=== PATIENT | female | born 1995 | race Caucasian/White ===

== ENCOUNTER 2021-03-15 02:08 | Emergency (ER) | payer MEDICAID, SELFPAY ==
[2021-03-15 02:16] VITALS: BP 119/60; PULSE 78; RESP 20; TEMP 36.6; O2SAT 99; BMI 23.3
--- NOTE | 2021-03-15 02:21 | ECG_ITS ---
Test Reason : NAUSEA Blood Pressure : / mmHG Vent. Rate : 066 BPM Atrial Rate : 066 BPM P-R Int : 142 ms QRS Dur : 094 ms QT Int : 394 ms P-R-T Axes : 035 091 -25 degrees QTc Int : 413 ms Sinus rhythm with marked sinus arrhythmia Rightward axis Nonspecific ST abnormality Inferior leads T-wave inversion in Anterior leads Abnormal ECG No previous ECGs available Referred By: Em Sanz Electronically Signed By:MAMI WARD MD
--- NOTE | 2021-03-15 02:41 | ED_ITS ---
HPI - Nausea/Vomiting/Diarrhea General Chief complaint: Nausea/Vomiting/Diarrhea Stated complaint: non-stop vomiting, bulimic, dehydration Time Seen by Provider: 03/15/21 02:20 Source: patient Mode of arrival: ambulatory History of Present Illness HPI Narrative: 25-year-old female presents with history of sickle cool vomiting of bulimia and now presents with multiple episodes of nausea and vomiting that started today and patient states that she also smokes marijuana and the last time was today as well. She states he is having 10/10 burning abdominal/chest pain and states that she can not keep anything down. She states the nausea and vomiting started shortly after she attempted to drink hot chocolate approximately 5:00 p.m. last night. Otherwise, she denies any fever, chills, diarrhea. Related Data Previous Rx's Medication Instructions Recorded ondansetron HCl 4 mg tablet 4 mg PO Q6H PRN #10 tab 03/15/21 (Zofran) prochlorperazine 25 mg rectal 25 mg TX Q12H PRN #12 ea 03/15/21 suppository Allergies Allergy/AdvReac Type Severity Reaction Status Date / Time No Known Allergies Allergy Verified 03/15/21 03:08 Review of Systems Review of Systems: Pertinent positives and negatives as stated in HPI 10 point review systems is otherwise negative. [facility] Past Medical History Source: nursing notes reviewed Social History Social History Advance Directives: No Advance Directives Information Provided: Yes Patient : No Physical Exam Vital Signs: Vital Signs: Last Vital Signs Temp 98 F 03/15/21 02:16 Pulse 78 03/15/21 02:16 Resp 20 03/15/21 02:16 BP 119/60 03/15/21 02:16 Pulse Ox 99 03/15/21 02:16 Body Mass Index 23.3 VITAL SIGNS: Reviewed. GENERAL: Well developed, well nourished, in no acute distress. HEAD: Normocephalic/atraumatic EYES: PERRLA, EOMI OROPHARYNX: no oral lesions noted, posterior pharynx clear NECK: Supple, no adenopathy LUNGS: Normal breath sounds. No adventitious sounds or accessory muscle use. SpO2<99> CARDIOVASCULAR: Regular rate and rhythm without noted murmurs ABDOMEN: Soft, non-tender, non-distended with bowel sounds. SKIN: Inspection of the skin reveals no rashes NEUROLOGIC: Alert and oriented x 4. PSYCH: Patient actively placing 2 fingers down her throat to induce vomiting Course Course Course Narrative: 25-year-old female with history and clinical presentation consistent with bulimia, possibly exacerbated by patient's marijuana usage, but actively making herself vomit at this time. On review of all investigations patient has a leukocytosis that is consistent with her underlying multiple episodes retching, but otherwise no significant electrolyte abnormalities in new acute findings on EKG. After patient was fluid resuscitated and received combination antiemetics she is currently tolerating saltines as well ice chips and is discharged home in stable condition with instructions to resume her home medications and to follow-up her primary care provider. MDM - Nausea/Vomiting/Diarrhea Lab Data Result diagrams: 03/15/21 02:40 03/15/21 02:40 Labs: Lab Results 03/15/21 03/15/21 03/15/21 Range/Units 02:40 02:40 03:49 WBC 17.7 H (4.8-10.8) X10*3/uL RBC 4.47 (4.20-5.50) X10*6/uL Hgb 13.8 (12.0-16.0) g/dl Hct 39.6 (37.0-47.0) % MCV 88.6 (80.0-98.0) fL MCH 30.9 (27.0-33.0) pg MCHC 34.8 (31.0-35.0) g/dl RDW 13.3 (11.0-16.0) % Plt Count 315 (160-400) X10*3/uL MPV 9.8 (9.4-12.3) fL Immature Gran % (Auto) 0.4 (0.0-0.4) % Neut % (Auto) 91.8 H (45-73) % Lymph % (Auto) 4.7 L (20-40) % [place] % (Auto) 2.7 (2-11) % Eos % (Auto) 0.2 (0-4) % Baso % (Auto) 0.2 (0-2) % Lymph # (Auto) 0.8 L (1.2-4.9) X10*3/uL [place] # (Auto) 0.5 (0.1-1.2) X10*3/uL Eos # (Auto) 0.0 (0.0-0.4) X10*3/uL Baso # (Auto) 0.0 (0.0-0.2) X10*3/uL Abs Immat Gran (auto) 0.07 H (0.00-0.03) X10*3/uL Absolute Neuts (auto) 16.3 H (2.0-8.3) x10*3/uL Absolute Nucleated RBC 0.000 (0.0-0.012) X10*3/uL Nucleated RBC % (auto) 0.0 (0.0-0.2) /100WBC Sodium 143 (135-145) mmol/L Potassium 3.9 (3.3-5.1) mmol/L Chloride 108 (96-108) mmol/L Carbon Dioxide 21 L (22-29) mmol/L Anion Gap 18 (12-20) BUN 13 (9-16) mg/dL Creatinine 1.01 (0.5-1.4) mg/dL Estim Creat Clear Calc 77.9 Estimated GFR > 60 Random Glucose 154 H (60-115) mg/dL Calcium 10.7 H (8.4-10.2) mg/dL Total Bilirubin 0.6 (0.0-1.0) mg/dL AST 20 (5-31) U/L ALT 11 (0-31) U/L Alkaline Phosphatase 78 (39-117) U/L Total Protein 8.5 H (6.5-8.0) g/dL Albumin 4.9 (3.5-5.0) g/dL Urine Color YELLOW Urine Appearance HAZY Urine pH 8.5 H (5.0-8.0) Ur Specific [place] 1.015 (1.005-1.025) Urine Protein 1+ H (NEG-TRACE) MG/DL Urine Glucose (UA) NEG (NEG) MG/DL Urine Ketones 15 (NEG) MG/DL Urine Blood NEG (NEG) Urine Nitrite NEG (NEG) Ur Leukocyte Esterase NEG (NEG) Urine RBC 1-4 (0) /HPF Urine WBC 1-4 (0-4) /HPF Ur Squamous Epith Cells 2+ /LPF Urine Bacteria 2+ /LPF Urine Mucus 2+ /LPF Urine Test (NEGATIVE) Urine Opiates Screen (Not Detect) Urine Fentanyl Screen (Not Detect) Ur Barbiturates Screen (Not Detect) Ur Phencyclidine Scrn (Not Detect) Ur Amphetamines Screen (Not Detect) U Benzodiazepines Scrn (Not Detect) Urine Cocaine Screen (Not Detect) U Marijuana (THC) Screen (Not Detect) 03/15/21 03/15/21 Range/Units 03:49 03:49 WBC (4.8-10.8) X10*3/uL RBC (4.20-5.50) X10*6/uL Hgb (12.0-16.0) g/dl Hct (37.0-47.0) % MCV (80.0-98.0) fL MCH (27.0-33.0) pg MCHC (31.0-35.0) g/dl RDW (11.0-16.0) % Plt Count (160-400) X10*3/uL MPV (9.4-12.3) fL Immature Gran % (Auto) (0.0-0.4) % Neut % (Auto) (45-73) % Lymph % (Auto) (20-40) % [place] % (Auto) (2-11) % Eos % (Auto) (0-4) % Baso % (Auto) (0-2) % Lymph # (Auto) (1.2-4.9) X10*3/uL [place] # (Auto) (0.1-1.2) X10*3/uL Eos # (Auto) (0.0-0.4) X10*3/uL Baso # (Auto) (0.0-0.2) X10*3/uL Abs Immat Gran (auto) (0.00-0.03) X10*3/uL Absolute Neuts (auto) (2.0-8.3) x10*3/uL Absolute Nucleated RBC (0.0-0.012) X10*3/uL Nucleated RBC % (auto) (0.0-0.2) /100WBC Sodium (135-145) mmol/L Potassium (3.3-5.1) mmol/L Chloride (96-108) mmol/L Carbon Dioxide (22-29) mmol/L Anion Gap (12-20) BUN (9-16) mg/dL Creatinine (0.5-1.4) mg/dL Estim Creat Clear Calc Estimated GFR Random Glucose (60-115) mg/dL Calcium (8.4-10.2) mg/dL Total Bilirubin (0.0-1.0) mg/dL AST (5-31) U/L ALT (0-31) U/L Alkaline Phosphatase (39-117) U/L Total Protein (6.5-8.0) g/dL Albumin (3.5-5.0) g/dL Urine Color Urine Appearance Urine pH (5.0-8.0) Ur Specific [place] (1.005-1.025) Urine Protein (NEG-TRACE) MG/DL Urine Glucose (UA) (NEG) MG/DL Urine Ketones (NEG) MG/DL Urine Blood (NEG) Urine Nitrite (NEG) Ur Leukocyte Esterase (NEG) Urine RBC (0) /HPF Urine WBC (0-4) /HPF Ur Squamous Epith Cells /LPF Urine Bacteria /LPF Urine Mucus /LPF Urine Test NEGATIVE (NEGATIVE) Urine Opiates Screen Not Detected (Not Detect) Urine Fentanyl Screen Not Detected (Not Detect) Ur Barbiturates Screen Not Detected (Not Detect) Ur Phencyclidine Scrn Not Detected (Not Detect) Ur Amphetamines Screen Not Detected (Not Detect) U Benzodiazepines Scrn Not Detected (Not Detect) Urine Cocaine Screen Not Detected (Not Detect) U Marijuana (THC) Screen POSITIVE H (Not Detect) ECG Data Attestation: I personally reviewed and interpreted this ECG as follows: Prior ECG tracings: not available for review Interpretation: Sinus rhythm, HR -66, no STEMI, TX/QRS/QTC are within normal li mits. Discharge Plan Discharge Clinical Impression: Dehydration, Vomiting, History of bulimia Patient Disposition: Home, Self-Care Instructions: Dehydration (ED), Bulimia Nervosa (ED) Additional Instructions: 1. Increase fluid hydration, especially with water. 2. Please follow-up with your primary care provider on Wednesday morning for re- evaluation. Return to the ER for acute worsening of symptoms. Prescriptions: New ondansetron HCl [Zofran] 4 mg tablet 4 mg PO Q6H PRN (Reason: nausea and vomiting) Qty: 10 RF: 0 prochlorperazine 25 mg suppository 25 mg TX Q12H PRN (Reason: nausea and vomiting) Qty: 12 RF: 0
[2021-03-15] MEDS: 0.9 % Sodium Chloride 1,000 ML 999 ML IV (02:43)
[2021-03-15 02:44] LABS: Basophils Percent Auto 0.2 % (0-2); Eosinophils Percent Auto 0.2 % (0-4); Hematocrit 39.6 % (37.0-47.0); Hemoglobin 13.8 g/dl (12.0-16.0); Imm Gran Abs Auto 0.07 X10*3/uL (0.00-0.03); Imm Gran Pct Auto 0.4 % (0.0-0.4); Lymphocytes Absolute Auto 0.8 X10*3/uL (1.2-4.9); Lymphocytes Percent Auto 4.7 % (20-40); MANUAL DIFF FLAG NO; Mean Corpuscular HGB Conc 34.8 g/dl (31.0-35.0); Mean Corpuscular Hemoglobin 30.9 pg (27.0-33.0); Mean Corpuscular Volume 88.6 fL (80.0-98.0); Mean Platelet Volume 9.8 fL (9.4-12.3); Monocytes Absolute Auto 0.5 X10*3/uL (0.1-1.2); Monocytes Percent Auto 2.7 % (2-11); Neutrophils Absolute Auto 16.3 x10*3/uL (2.0-8.3); Neutrophils Percent Auto 91.8 % (45-73); Platelet Count 315 X10*3/uL (160-400); Red Blood Count 4.47 X10*6/uL (4.20-5.50); Red Cell Distribution Width 13.3 % (11.0-16.0); SCAN SMEAR FLAG 1; White Blood Count 17.7 X10*3/uL (4.8-10.8)
[2021-03-15] MEDS: diphenhydrAMINE HCL 50 MG/ML VIAL 25 MG IVPUSH (02:50)
[2021-03-15] MEDS: Metoclopramide HCl 10 MG/2 ML VIAL IVPUSH (02:50)
[2021-03-15] MEDS: ondansetron HCL 4 MG/2 ML VIAL IVPUSH (02:50)
[2021-03-15 03:08] LABS: Alanine Aminotransferase 11 U/L (0-31); Albumin Level 4.9 g/dL (3.5-5.0); Alkaline Phosphatase 78 U/L (39-117); Anion Gap 18 (12-20); Aspartate Amino Transferase 20 U/L (5-31); Bilirubin Total 0.6 mg/dL (0.0-1.0); Blood Urea Nitrogen 13 mg/dL (9-16); Calcium 10.7 mg/dL (8.4-10.2); Carbon Dioxide 21 mmol/L (22-29); Chloride 108 mmol/L (96-108); Creatinine Clr Calc Pharmacy 77.9; Estimated Glomerular Filt Rate > 60; Glucose Random 154 mg/dL (60-115); Potassium 3.9 mmol/L (3.3-5.1); Sodium 143 mmol/L (135-145); Total Protein 8.5 g/dL (6.5-8.0)
[2021-03-15 03:56] LABS: Appearance Urine HAZY; Color Urine YELLOW; Glucose Urine UA NEG (NEG); Leukocyte Esterase Urine NEG (NEG); Nitrite Urine NEG (NEG); PH 8.5 (5.0-8.0); Specific Gravity - Urine 1.015 (1.005-1.025); UACC Culture Trigger NO; Urine Blood NEG (NEG); Urine Ketones 15 MG/DL (NEG)
[2021-03-15 03:57] LABS: Urine Protein 1+ MG/DL (NEG-TRACE)
[2021-03-15 04:02] LABS: Bacteria Urine 2+ /LPF; Mucus Urine 2+ /LPF; Squamous Epithelial Cell Urine 2+ /LPF
[2021-03-15 04:04] LABS: UPreg QC Valid YES; Urine Pregnancy NEGATIVE (NEGATIVE)
[2021-03-15] MEDS: Prochlorperazine Edisylate 10 MG/2 ML VIAL IVPUSH (04:04)
[2021-03-15 04:13] LABS: Amphetamine Screen Urine Not Detected (Not Detect); Barbiturates, Urine Not Detected (Not Detect); Benzodiazepines Screen Urine Not Detected (Not Detect); Cannabinoid Screen Urine POSITIVE (Not Detect); Cocaine Screen Urine Not Detected (Not Detect); Fentanyl, urine Not Detected (Not Detect); Opiate Screen Urine Not Detected (Not Detect); Phencyclidine Screen Urine Not Detected (Not Detect)
[2021-03-15 06:12] VITALS: BP 114/62; PULSE 71; RESP 18; TEMP 36.9; O2SAT 98
== END 2021-03-15 06:30 | disposition home or self-care (01) ==
PROVIDERS: Emergency Provider Student in an Organized Health Care Education/Training Program
DX: E86.0 Dehydration (principal); F50.2 Bulimia nervosa; F12.90 Cannabis use, unspecified, uncomplicated
CPT/HCPCS: 36415; 80053; 80307; 81001; 81025; 85025; 93005; 96361; 96374; 96375; 99284; J1200; J2405; J2765

== ENCOUNTER 2021-09-21 01:00 | Emergency (ER) | payer OTHER, SELFPAY ==
[2021-09-21 01:17] VITALS: BP 147/72; PULSE 97; RESP 20; TEMP 37; O2SAT 96; BMI 27.4
== END 2021-09-21 01:46 | disposition left against medical advice (07) ==
PROVIDERS: Emergency Provider Emergency Medicine Emergency Medical Services
DX: O26.891 Other specified pregnancy related conditions, first trimester (principal); F50.2 Bulimia nervosa; Z3A.01 Less than 8 weeks gestation of pregnancy
CPT/HCPCS: 99281

== ENCOUNTER 2025-03-15 16:07 | Emergency (ER) | payer OTHER, SELFPAY ==
[2025-03-15 16:09] VITALS: BP 132/86; PULSE 60
[2025-03-15 16:10] VITALS: BP 108/48; PULSE 78; RESP 20; TEMP 36.4; O2SAT 99; BMI 27.8
--- OUTSIDE RECORDS SUMMARY | 2025-03-15 16:30 | XMS_ITS | Clinical Summary ---
Author Organization [facility] it Address [address] [place] [address] Care Team Providers Care Design Engineering Specialist Name Role Phone Unavailable Primary Care Provider Unavailabl e Social History Tobacco Use Types Packs/Day Years Used Date Smoking Tobacco: Never Assessed Comments Unknown Sex and Gender Information Value Date Recorded Sex Assigned at Not on file Legal Sex Female 3:43 AM EST Gender Identity Not on file Sexual Orientation Not on file Plan of Treatment Health Maintenance Due Date Last Done Comments DTaP,Tdap,and Td Vaccines (1 - Tdap) 2016 Hepatitis B Vaccines (1 of 3 - 19+ 3-dose series) 2016 Cervical Cancer Screening: P ap Smear 2018 Depression Screening 04/19/2024 COVID-19 Vaccine (1 - 2024-2 6 season) 2024 Influenza Vaccine (#1) 2024 HPV Vaccines (1 - 3-dose SCD M series) 2024 RSV Immunization Adult Patie nts (1 - 1-dose 75+ series) 2072 HIB Vaccines Aged Out No longer eligi ble based on patient's age to complete this topic Hepatitis A Vaccines Aged Out No long er eligible based on patient's age to complete this topic IPV Vaccines Aged Out No longer eligi ble based on patient's age to complete this topic MMR Vaccines Aged Out No longer eligi ble based on patient's age to complete this topic Meningococcal ACWY Vaccine Aged Out N o longer eligible based on patient's age to complete this topic Meningococcal B Vaccine Aged Out No l onger eligible based on patient's age to complete this topic Pneumococcal Vaccine: Pediat rics (0 to 5 Years) and At-Risk Patients (6 to 49 Years) Aged Out No longer eligible b ased on patient's age to complete this topic RSV Immunization Patients Un yulissa 20 months Aged Out No longer eligible b ased on patient's age to complete this topic Varicella Vaccines Aged Out No longer eligible based on patient's age to complete this topic
--- NOTE | 2025-03-15 16:53 | PC.NURSE ---
patient a&ox3, rr equal/non labored, pt vomiting and refusing to vomit into emesis bag- pt vomiting onto floor, continuously requesting water and crying when staff tells her she currently is unable to have PO. iv was inserted by ems, labs drawn by tech, pt medicated per order, call hernandez within reach, plan of care ongoing
[2025-03-15 16:55] LABS: MANUAL DIFF FLAG NO
--- NOTE | 2025-03-15 16:55 | ED_ITS ---
HPI - General Adult General Chief complaint: Abdominal Pain Stated complaint: 21wks preg, CP, v green bile, several diaphroretic Time Seen by Provider: 03/15/25 16:26 History of Present Illness ED Provider: Jesus MARTIN narrative: The patient is a 29-year-old female. She says that she is 21 weeks with her 3rd . She says that she has 2 children. Her last delivery was in June of 2023. She also has a history of cyclic vomiting syndrome and bulimia. She was last seen at this hospital's Emergency room in February of 2021 for an episode of significant vomiting. She comes to the hospital today with 2 days of significant nausea and vomiting and generalized abdominal and chest pain. Related Data Previous Rx's ?Medication ?Instructions ?Recorded ondansetron HCl 4 mg tablet 4 mg PO Q6H PRN nausea and 03/15/21 (Zofran) vomiting #10 tabs prochlorperazine 25 mg rectal 25 mg CO Q12H PRN nausea and 03/15/21 suppository vomiting #12 ea Allergies Allergy/AdvReac Type Severity Reaction Status Date / Time No Known Allergies Allergy Verified 03/15/25 16:11 Review of Systems 2 Review of Systems: Yes all other systems are reviewed and are negative [facility] Social History Social History Smoked in Last 30 Days: No Use of substances other than those prescribed or required for medical reasons: No Advance Directives: No Advance Directives Information Provided: No Do you have a plan to hurt others: No Plan Patient : Yes Physical Exam ED Vital Signs: Vital Signs - 24 hr 03/15/25 16:10 03/15/25 19:44 Temperature 97.6 F 0 F L Pulse Rate 78 0 L Respiratory Rate 20 18 Blood Pressure 108/48 L 00/00 L Pulse Oximetry 99 Oxygen Delivery Method Room Air BMI result Body Mass Index 27.8 Const Other: The patient was lying on the stretcher curled up in a ball with a blanket pulled up over her head. She did not seem in initial distress. During the interview however she became quite tearful. After the interview she retched extremely loudly. Orientation/consciousness: patient oriented x3 HENMT Other: The face is symmetrical. ?Mucous membranes moist. Eyes Other: Pupils are round equal, conjunctivae are clear, extraocular movements intact Neck Neck: Yes normal visual inspection and Yes full ROM Resp Effort & Inspection: normal respiratory effort Auscultation: clear to auscultation bilaterally Cardio Rate: regular rate Rhythm: regular rhythm Heart sounds: S1 normal heart sound present and S2 normal heart sound present GI Other: The patient has a gravid abdomen with the uterine fundus at a proximally the umbilicus. The abdomen seems soft. She reports diffuse tenderness. Skin Other: The skin is dry and unremarkable Neuro General: patient oriented x3, tone normal, moves all extremities, no focal motor deficits and CN's II-XI intact bilaterally Extrem Other: There is no calf swelling or tenderness. No asymmetry. No peripheral edema. Medications Administered Discontinued Medications Generic Name Dose Route Start Last Admin Trade Name Freq PRN Reason Stop Dose Admin Diphenhydramine HCl 25 mg 03/15/25 16:32 03/15/25 16:50 Diphenhydramine Hcl 50 Mg/Ml Vial IVPUSH 03/15/25 16:33 25 mg ONCE ONE Administration Diphenhydramine HCl 25 mg 03/15/25 17:54 03/15/25 18:00 Diphenhydramine Hcl 50 Mg/Ml Vial IVPUSH 03/15/25 17:55 25 mg ONCE ONE Administration Sodium Chloride 1,000 mls @ 999 mls/hr 03/15/25 16:45 03/15/25 17:51 Ns IV 03/15/25 17:45 Infused .Q1H1M TL Infusion Lactated Ringer's 1,000 mls @ 999 mls/hr 03/15/25 18:00 03/15/25 19:43 Lr IV 03/15/25 19:00 Infused .Q1H1M TL Infusion Metoclopramide HCl 10 mg 03/15/25 16:32 03/15/25 16:50 Metoclopramide Hcl 10 Mg/2 Ml Vial IVPUSH 03/15/25 16:33 10 mg ONCE ONE Administration Medical Decision Making Medical Decision Making MDM Narrative: The patient is a 29-year-old female who reports that she is 21 weeks with her 3rd . She has a history of bulimia and she also has a history of cyclic vomiting. I suspect that she has been considered to have cannabis hyperemesis in the past. Today the patient was retching a great deal in a manner suggestive of cannabis hyperemesis. The patient has no significant abdominal tenderness and she has a heart rate of 145. She is not reporting any symptoms to suggest a problem with the . I suspect that this is an episode of cannabis hyperemesis. The patient was given an IV and given IV fluids as well as IV metoclopramide and IV diphenhydramine. At some point the patient became very focused on taking a hot shower. She started walking around the emergency room looking at different bathroom to see if any of the bathrooms has a shower. We did not have a shower available for her to use. She then asked if someone could rub Elliott Morgan on her. I felt that this eagerness to take a hot shower and also to use Elliott-Morgan were likely consistent with cannabis hyperemesis. She said that she had urinated in the bed. We therefore had no urine for testing. Ultimately the patient insisted upon being discharged because she wanted to take a hot shower. She called her boyfriend pick her up. She is not suicidal. The patient had labs that showed a white count of 15.1, hemoglobin 12.2, platelet count 267, 85% neutrophils. Her chemistries showed a chloride of 110, carbon dioxide of 21, anion gap 11, BUN 7, otherwise normal. Given that she has a benign abdomen and a normal heart rate I do not have any significant suspicion for an acute obstetrical emergency. I offered to contact [facility] (she gets her OBGYN care through [facility]) to see if she might be accepted in transfer from control of her hyperemesis symptoms but the patient did not wish me to do this. The patient only wanted to be discharged and was therefore discharged to follow up with her regular OB providers in the morning. Lab Data 03/15/25 16:49 03/15/25 16:49 Labs: Lab Results 03/15/25 Range/Units 16:49 WBC 15.1 H (4.8-10.8) X10*3/uL RBC 3.88 L (4.20-5.50) X10*6/uL Hgb 12.2 (12.0-16.0) g/dl Hct 35.4 L (37.0-47.0) % MCV 91.2 (80.0-98.0) fL MCH 31.4 (27.0-33.0) pg MCHC 34.5 (31.0-35.0) g/dl RDW 12.6 (11.0-16.0) % Plt Count 267 (160-400) X10*3/uL MPV 9.8 (9.4-12.3) fL Immature Gran % (Auto) 0.5 H (0.0-0.4) % Neut % (Auto) 84.8 H (45-73) % Lymph % (Auto) 10.9 L (20-40) % [place] % (Auto) 3.2 (2-11) % Eos % (Auto) 0.3 (0-4) % Baso % (Auto) 0.3 (0-2) % Lymph # (Auto) 1.7 (1.2-4.9) X10*3/uL [place] # (Auto) 0.5 (0.1-1.2) X10*3/uL Eos # (Auto) 0.0 (0.0-0.4) X10*3/uL Baso # (Auto) 0.0 (0.0-0.2) X10*3/uL Abs Immat Gran (auto) 0.07 H (0.00-0.03) X10*3/uL Absolute Neuts (auto) 12.9 H (2.0-8.3) x10*3/uL Absolute Nucleated RBC 0.000 (0.0-0.012) X10*3/uL Nucleated RBC % (auto) 0.0 (0.0-0.2) /100WBC Sodium 138 (135-145) mmol/L Potassium 3.8 (3.3-5.1) mmol/L Chloride 110 H (96-108) mmol/L Carbon Dioxide 21 L (22-29) mmol/L Anion Gap 11 L (12-20) BUN 7 L (9-16) mg/dL Creatinine 0.55 (0.5-1.4) mg/dL Estim Creat Clear Calc 167.7 Estimated GFR > 60 Random Glucose 107 (60-115) mg/dL Calcium 9.4 D (8.4-10.2) mg/dL Total Bilirubin 0.4 (0.0-1.0) mg/dL Direct Bilirubin 0.1 (0.0-0.5) mg/dL AST 19 (5-31) U/L ALT 7 (0-31) U/L Alkaline Phosphatase 85 (39-117) U/L Total Protein 6.8 (6.5-8.0) g/dL Albumin 3.9 (3.5-5.0) g/dL Lipase 16 (8-78) U/L Discharge Plan Discharge Clinical Impression: Hyperemesis, 21 weeks gestation of Patient Disposition: Home, Self-Care Additional Instructions: Please contact your OBGYN office in the morning to discuss your symptoms and for further advice about these symptoms. Return to the emergency room if you feel significantly worse. However most importantly call your obstetrical care office tomorrow morning. Also, if you has been using marijuana, marijuana can often cause the symptoms you are having. Please do not use marijuana if you has been using it. Prescriptions: No Action ondansetron HCl [Zofran] 4 mg tablet 4 mg PO Q6H PRN (Reason: nausea and vomiting) Qty: 10 0RF prochlorperazine 25 mg suppository 25 mg CO Q12H PRN (Reason: nausea and vomiting) Qty: 12 0RF Referrals: [facility] DELINQU[employer] PREVENTION SOCIAL WORKER, David Jerez [Outside] Interventions: ED Discharge Assessment Last Done: 03/15/25 19:44 Discharge Date/Time: 03/15/25 19:45 Print Language: [place]an
[2025-03-15 16:57] LABS: Hematocrit 35.4 % (37.0-47.0); Hemoglobin 12.2 g/dl (12.0-16.0); Imm Gran Abs Auto 0.07 X10*3/uL (0.00-0.03); Imm Gran Pct Auto 0.5 % (0.0-0.4); Lymphocytes Absolute Auto 1.7 X10*3/uL (1.2-4.9); Mean Corpuscular HGB Conc 34.5 g/dl (31.0-35.0); Mean Corpuscular Hemoglobin 31.4 pg (27.0-33.0); Mean Corpuscular Volume 91.2 fL (80.0-98.0); NRBC Abs Auto 0.000 X10*3/uL (0.0-0.012); NRBC Pct Auto 0.0 /100WBC (0.0-0.2); Platelet Count 267 X10*3/uL (160-400); Red Blood Count 3.88 X10*6/uL (4.20-5.50); White Blood Count 15.1 X10*3/uL (4.8-10.8)
[2025-03-15 17:11] LABS: Alanine Aminotransferase 7 U/L (0-31); Albumin Level 3.9 g/dL (3.5-5.0); Alkaline Phosphatase 85 U/L (39-117); Anion Gap 11 (12-20); Aspartate Amino Transferase 19 U/L (5-31); Blood Urea Nitrogen 7 mg/dL (9-16); Calcium 9.4 mg/dL (8.4-10.2); Carbon Dioxide 21 mmol/L (22-29); Chloride 110 mmol/L (96-108); Creatinine Clr Calc Pharmacy 167.7; Estimated Glomerular Filt Rate > 60; Lipase 16 U/L (8-78); Potassium 3.8 mmol/L (3.3-5.1); Sodium 138 mmol/L (135-145); Total Protein 6.8 g/dL (6.5-8.0)
[2025-03-15] MEDS: Lactated Ringers 1,000 ML 999 ML IV (18:00)
--- NOTE | 2025-03-15 18:03 | PC.NURSE ---
pt medicated per order
--- NOTE | 2025-03-15 19:09 | PC.NURSE ---
pt requesting ice chips. states she is no longer nauseous. a few ice chips provided
--- NOTE | 2025-03-15 19:18 | PC.NURSE ---
pt walking in hallways with IV pole demanding to find a shower. pt informed multiple times that there is no shower in the ED.
[2025-03-15 19:44] VITALS: BP 00/00; PULSE 0; RESP 18; TEMP -17.7; TEMP 0
== END 2025-03-15 19:45 | disposition home or self-care (01) ==
PROVIDERS: Emergency Provider Emergency Medicine
DX: O21.0 Mild hyperemesis gravidarum (principal); Z3A.21 21 weeks gestation of pregnancy
CPT/HCPCS: 36415; 80048; 80076; 83690; 85025; 96361; 96374; 96375; 96376; 99284; J1200; J2765; J7120